=== PATIENT | female | born 1945 | race Caucasian/White ===

== ENCOUNTER → 2018-02-21 | Outpatient (CLI) | payer MEDICARE, OTHER | END | disposition home or self-care (01) | LOC: CFH 13:21 | PROVIDERS: ATTEND Internal Medicine | DX: N63.22 Unspecified lump in the left breast, upper inner quadrant (principal) | CPT/HCPCS: 77065 ==

== ENCOUNTER → 2018-02-26 | Outpatient (CLI) | payer MEDICARE, OTHER ==
[~2018-02-26] MED LIST: LIDOCAINE 1%-EPI 1:100K, 20ML ONE; SODIUM BICARBONATE 4.0%, 5ML ONE
== END | disposition home or self-care (01) ==
LOC: CFH 11:08
PROVIDERS: ATTEND Internal Medicine
DX: N63.20 Unspecified lump in the left breast, unspecified quadrant (principal)
CPT/HCPCS: 19083; 77065; 88305; J3490; 19285

== ENCOUNTER 2018-04-03 12:09 | Observation (INO) | payer MEDICARE, OTHER ==
[~2018-04-03] VITALS: Ht 154.9 cm; Wt 68.7 kg
[~2018-04-03 12:09] MED LIST changes: +AMLO-150 PO; +ASPI-496 PO; -LIDOCAINE 1%-EPI 1:100K, 20ML ONE; +LISI-170 PO; +METO50TA82 PO; +ROSU40TA PO; -SODIUM BICARBONATE 4.0%, 5ML ONE
[2018-04-03] MEDS ORDERED: LACTATED RINGERS 1,000 ML IV SCH ×2 (12:15→19:30)
[2018-04-03] MEDS ORDERED: SCOPOLAMINE PATCH, 1.5MG PATCH.TD72 TD ONE (12:30)
[2018-04-03] MEDS ORDERED: GABAPENTIN 300 MG CAPSULE PO ONE (12:30)
[2018-04-03] MEDS ORDERED: ACETAMINOPHEN 500 MG TABLET PO ONE (12:30)
[2018-04-03] MEDS ORDERED: ONDANSETRON ODT 8 MG PO ONE (12:30)
[2018-04-03] MEDS ORDERED: BUPIVACAINE/PF-EPI 0.5% 1:200K ONE (12:36)
[2018-04-03] MEDS ORDERED: ISOSULFAN BLUE 10 MG/ML, 5ML IV ONE (12:36)
[2018-04-03 12:59] VITALS: BP_SYST 150
[2018-04-03] MEDS ORDERED: FENTANYL PF 250 MCG/5ML ONE (14:03)
[2018-04-03] MEDS ORDERED: MIDAZOLAM 1 MG/ML, 2ML ONE (14:03)
[2018-04-03] MEDS ORDERED: CEFAZOLIN 1,000 MG ONE (14:06)
[2018-04-03] MEDS ORDERED: DEXAMETHASONE 4 MG/ML, 1ML ONE (14:06)
[2018-04-03] MEDS ORDERED: ONDANSETRON 2MG/ML, 2ML ONE (14:06)
[2018-04-03] MEDS ORDERED: ROCURONIUM 10MG/ML,5ML ONE (14:06)
[2018-04-03] MEDS ORDERED: NEOSTIGMINE 1 MG/ML, 10ML ONE (14:06)
[2018-04-03] MEDS ORDERED: PROPOFOL 10 MG/ML, 20ML ONE (14:06)
[2018-04-03] MEDS ORDERED: GLYCOPYRROLATE 0.2MG/1ML, 5ML ONE (14:06)
[2018-04-03] MEDS ORDERED: MEPERIDINE/PF 25MG/0.5ML IVPush PRN (15:30)
[2018-04-03] MEDS ORDERED: PROMETHAZINE 25 MG/ML, 1ML IM PRN ×2 (15:30)
[2018-04-03] MEDS ORDERED: ONDANSETRON ODT 8 MG PO PRN (15:30)
[2018-04-03] MEDS ORDERED: PROMETHAZINE 25 MG/ML, 1ML IV PRN (15:30)
[2018-04-03] MEDS ORDERED: MORPHINE SULFATE 4 MG/ML, 1ML IVPush PRN ×2 (15:30→19:30)
[2018-04-03] MEDS ORDERED: HYDROmorphone 2 MG/ML, 1ML IVPush PRN (15:30)
[2018-04-03] MEDS ORDERED: hydrALAzine 20 MG/ML, 1ML IV PRN (15:30)
[2018-04-03] MEDS ORDERED: PROMETHAZINE 25 MG SUPP PR PRN (15:30)
[2018-04-03] MEDS ORDERED: LABETALOL 5MG/ML, 20ML IV PRN (15:30)
[2018-04-03] MEDS ORDERED: PROMETHAZINE 12.5 MG SUPP PR PRN (15:30)
[2018-04-03] MEDS ORDERED: ONDANSETRON 2MG/ML, 2ML IV PRN (15:30)
[2018-04-03] MEDS ORDERED: OXYcodone 5 MG/5 ML ORAL.SOL UDC ONE ×2 (17:33→17:49)
[2018-04-03] MEDS: OXYcodone 5 MG/5 ML ORAL.SOL UDC PO PRN ×2 (17:35→17:50)
[2018-04-03] MEDS ORDERED: FENTANYL PF 100 MCG/2ML ONE (17:36)
[2018-04-03] MEDS: FENTANYL PF 100 MCG/2ML IV PRN ×3 (17:38→17:48)
[2018-04-03] MEDS ORDERED: ONDANSETRON 2MG/ML, 2ML IVPush PRN (19:30)
[2018-04-03 20:57] VITALS: BP 115/52
[2018-04-03] MEDS: LISINOPRIL 20 MG TABLET PO SCH (21:00)
[2018-04-03] MEDS ORDERED: ATORVASTATIN 80 MG TABLET PO SCH (21:00)
[2018-04-04 00:02] VITALS: BP 110/57
[2018-04-04 03:50] VITALS: BP 106/60
[2018-04-04] MEDS ORDERED: METOPROLOL TARTRATE 50 MG TABLET PO SCH (06:00)
[2018-04-04] MEDS ORDERED: ASPIRIN 81 MG TABLET EC PO SCH (06:00)
[2018-04-04] MEDS: LISINOPRIL 20 MG TABLET PO SCH (07:57)
[2018-04-04 08:07] VITALS: BP 113/68
[2018-04-04] MEDS ORDERED: AMLODIPINE 5 MG TABLET PO SCH (09:00)
[2018-04-04] MEDS ORDERED: ONDA4TAB7 PO (11:25)
[2018-04-04] MEDS ORDERED: HYDR-3240 PO (11:27)
== END 2018-04-04 12:05 | disposition home or self-care (01) ==
LOC: OUT 12:09 → EDSTATUS 12:30 → 4NOR 18:43 → OUT 21:28 → DCLOUNGE 04-04 11:43
PROVIDERS: ADMIT Surgery; ATTEND Surgery
DX: C50.212 Malignant neoplasm of upper-inner quadrant of left female breast (principal)
CPT/HCPCS: 19301; 38525; 38792; 76098; 88305; 88307; 88329; A9541; G0378; J0690; J1100; J2250; J2405; J2704; J2710; J3010; J3490; J7120; Q0162